=== PATIENT | male | born 1985 | race Caucasian/White ===

== ENCOUNTER 2018-08-30 16:33 | Emergency (ER) | payer MEDICAID ==
[2018-08-30 16:38] VITALS: BP 120/73
[2018-08-30] MEDS ORDERED: SULFAMETHOX/TMP 800/160 MG 1 TAB PO ONE (17:01)
--- NOTE | 2018-08-30 17:01 | EDPHY ---
H & P Stated Complaint: abcess R forearm area x 4 days Time Seen by Provider: 08/30/18 16:45 HPI/ROS: CHIEF COMPLAINT: Abscess HISTORY OF PRESENT ILLNESS: Patient is a 33-year-old IV drug abuser who comes to the emergency department complaining of an abscess to his right forearm. He states that he 1st noticed it about 4 days ago. He had been clean for 3 months and relapsed last week. He also has a healing wound to his right leg. It was I and D 1 month ago and he was placed on Bactrim but he is concerned that there is a re-collection just below the previous wound.. No fevers. He states that he has had 4 or 5 of these in the past. Severity: Moderate Modifying factors: None REVIEW OF SYSTEMS: Constitutional: denies: chills, fever, recent illness, recent injury EENTM: denies: blurred vision, double vision, nose congestion Respiratory: denies: cough, shortness of breath Cardiac: denies: chest pain, irregular heart rate, lightheadedness, palpitations Gastrointestinal/Abdominal: denies: abdominal pain, diarrhea, nausea, vomiting, blood streaked stools Genitourinary: denies: dysuria, frequency, hematuria, pain Musculoskeletal: denies: joint pain, muscle pain Skin: See HPI Neurological: denies: headache, numbness, paresthesia, tingling, dizziness, weakness Hematologic/Lymphatic: denies: blood clots, easy bleeding, easy bruising Immunologic/allergic: denies: HIV/AIDS, transplant 10 systems reviewed and negative except as noted EXAM: GENERAL: Well-appearing, well-nourished and in no acute distress. HEAD: Atraumatic, normocephalic. EYES: Pupils equal round and reactive to light, extraocular movements intact, sclera anicteric, conjunctiva are normal. ENT: TMs normal, nares patent, oropharynx clear without exudates. Moist mucous membranes. NECK: Normal range of motion, supple without lymphadenopathy or JVD. LUNGS: Breath sounds clear to auscultation bilaterally and equal. No wheezes rales or rhonchi. HEART: Regular rate and rhythm without murmurs, rubs or gallops. ABDOMEN: Soft, nontender, normoactive bowel sounds. No guarding, no rebound. No masses appreciated. BACK: No CVA tenderness, no spinal tenderness, step-offs or deformities EXTREMITIES: Normal range of motion, no pitting or edema. No clubbing or cyanosis. NEUROLOGICAL: Cranial nerves II through XII grossly intact. Normal speech, normal gait. 5/5 strength, normal movement in all extremities, normal sensation , normal reflexes PSYCH: Normal mood, normal affect. SKIN: Large abscess left forearm over dorsal aspects approximately 4 x 5 cm, fluctuant, small abscess to left leg visualized with ultrasound approximately 2 x 2 cm. Just below previous I&D site. Previous site is healing well and is slightly open. Source: Patient Exam Limitations: No limitations - Personal History Current Tetanus/Diphtheria Vaccine: Unsure Current Tetanus Diphtheria and Acellular Pertussis (TDAP): Unsure - Medical/Surgical History Hx Asthma: No Hx Chronic Respiratory Disease: No Hx Diabetes: No Hx Cardiac Disease: No Hx Renal Disease: No Hx Cirrhosis: No Hx Alcoholism: No Hx HIV/AIDS: No Hx Splenectomy or Spleen Trauma: No Other PMH: IVDU - Family History Significant Family History: No pertinent family hx - Social History Smoking Status: Current every day smoker Alcohol Use: Occasionally Drug Use: Heroin Constitutional: Initial Vital Signs Temperature (C) 36.8 C 08/30/18 16:35 Heart Rate 91 08/30/18 16:35 Respiratory Rate 16 08/30/18 16:35 Blood Pressure 120/73 08/30/18 16:35 O2 Sat (%) 97 08/30/18 16:35 O2 Delivery Mode Room Air Allergies/Adverse Reactions: No Known Allergies Allergy (Unverified 08/30/18 16:34) Home Medications: Medication Instructions Recorded Prozac 10 MG (*) 08/30/18 Sulfamethox/Tmp 800/160 mg 1 tab PO BID #20 tab 08/30/18 [Bactrim Ds] Wellbutrin 150mg XL 08/30/18 Medical Decision Making Procedures: Bedside ultrasound: Bedside ultrasound performed the patient's right leg. Fluid collection seen consistent with abscess. Procedure: Abscess drainage. The patient's abscess was located on the right arm. I obtained verbal consent from the patient to drain the abscess who was informed about the possibility of bleeding and pain. The abscess was incised with 11 blade scalpel and 10 cc of purulent drainage was expressed. I irrigated the wound and placed some packing. The patient tolerated the procedure well. The procedure was performed by myself. Procedure: Abscess drainage. The patient's abscess was located on the right leg. I obtained verbal consent from the patient to drain the abscess who was informed about the possibility of bleeding and pain. The abscess was incised with 11 blade scalp and 3-4 cc of purulent drainage was expressed. I irrigated the wound and placed some packing. The patient tolerated the procedure well. The procedure was performed by myself. ED Course/Re-evaluation: Patient has multiple abscesses. There drained. He tolerated this well with local anesthetic. I will start him back on Bactrim. We discussed indications for returning. We had previously discussed systemic pain control but elected to avoid opiates. Differential Diagnosis: Partial list of the Differential diagnosis considered include but were not limited to; abscess, cellulitis and although unlikely based on the history and physical exam, I also considered endocarditis, sepsis. I discussed these differential diagnoses and the plan with the patient as well as the usual and expected course. The patient understands that the diagnosis is provisional and that in medicine we are not always correct and that further workup is often warranted. Usual and customary warnings were given. All of the patient's questions were answered. The patient was instructed to return to the emergency department should the symptoms at all worsen or return, otherwise to followup with the physician as we discussed. - Data Points Medications Given: Discontinued Medications Trimethoprim/Sulfamethoxazole (Bactrim Ds) 1 ea PO EDNOW ONE PRN Reason: Protocol Stop: 08/30/18 17:02 Last Admin: 08/30/18 17:25 Dose: 1 ea Departure - Departure Disposition: Home, Routine, Self-Care Clinical Impression: Abscess of right arm, Abscess of right leg Condition: Fair Instructions: Abscess Follow-up (ED) Referrals: NONE *PRIMARY CARE P,. [Primary Care Provider] - As per Instructions Lucero Feliz MD [Medical Doctor] - 2-3 days, call for appt. Prescriptions: Sulfamethox/Tmp 800/160 mg [Bactrim Ds] 1 tab PO BID #20 tab
== END 2018-08-30 17:42 | disposition home or self-care (01) ==
PROC: 0H9DXZZ Drainage of Right Lower Arm Skin, External Approach (ICD-10-PCS; principal; 2018-08-30)
DX: L03.113 Cellulitis of right upper limb (principal); L03.115 Cellulitis of right lower limb; F19.10 Other psychoactive substance abuse, uncomplicated; F17.200 Nicotine dependence, unspecified, uncomplicated

== ENCOUNTER 2019-02-05 21:55 | Emergency (ER) | payer MEDICAID ==
[2019-02-05] MEDS ORDERED: SULFAMETHOX/TMP 800/160 MG 1 TAB PO ONE (23:02)
--- NOTE | 2019-02-05 23:03 | EDPHY ---
H & P Time Seen by Provider: 02/05/19 22:35 HPI/ROS: Chief complaint: Left arm and foot infection History of present illness: This is a 33-year-old male who presents to the emergency department for left arm and foot infection. He was attempting to inject heroin intravenously into these regions a few days ago. There is became red and slightly swollen. He attempted to drain them today with a needle and a swelled up. He is concerned he has abscesses. He only reports mild pain. No fevers. No red streaking from the site. He does have a primary care doctor and recently had a full laboratory workup which was unremarkable according to him. He does believe his tetanus is up-to-date. Smoking Status: Current every day smoker Physical Exam: General: Alert, nontoxic. Skin: Patient has an area of erythema to the left antecubital fossa in the dorsum of the left foot. Minimal warmth on palpation. Minimal tenderness. No induration or fluctuance appreciated on palpation. No red streaking. Musculoskeletal: Moving the left upper and lower extremity without difficulty. Vascular: Radial pulses, DP and PT pulses 2+. Neurologic: Sensation intact in the left upper and lower extremity. Constitutional: Initial Vital Signs Temperature (C) 36.8 C 02/05/19 21:58 Heart Rate 102 H 02/05/19 21:58 Respiratory Rate 18 02/05/19 21:58 Blood Pressure 133/88 H 02/05/19 21:58 O2 Sat (%) 100 02/05/19 21:58 O2 Delivery Mode Room Air Allergies/Adverse Reactions: No Known Allergies Allergy (Verified 02/05/19 21:59) Home Medications: Medication Instructions Recorded Wellbutrin 150mg XL 08/30/18 LaMICtal 02/05/19 SUBOXONE 8mg/2mg 02/05/19 Sulfamethox/Tmp 800/160 mg 1 tab PO BID #14 tab 02/05/19 [Bactrim Ds] MDM/Departure - MDM Medications Given: Discontinued Medications Trimethoprim/Sulfamethoxazole (Bactrim Ds) 2 ea PO EDNOW ONE PRN Reason: Protocol Stop: 02/05/19 23:03 Last Admin: 02/05/19 23:09 Dose: 2 ea ED Course/Re-evaluation: Patient seen under the supervision of my secondary supervising physician Dr. Parish Merritt. Patient presents to the emergency department concerned he has an infection from where he attempted to inject heroin. He does appear to have a cellulitis. I have placed the ultrasound on these regions and do not see an underlying collection of fluid. Further no red streaking or other evidence of complications. I believe this is a simple cellulitis. He will be started on Bactrim. I did discuss that this could progress and form abscesses or other complications and that if his symptoms worsen or new symptoms develop he should return to the emergency room. He should otherwise follow up with his primary care doctor for recheck. The patient voiced understanding and agreement with plan. Differential Diagnosis: Included but not limited to cellulitis, lymphangitis, abscess - Depart Disposition: Home, Routine, Self-Care Clinical Impression: Cellulitis Qualifiers: Site of cellulitis: other site Qualified Code(s): L03.818 - Cellulitis of other sites Condition: Good Instructions: Cellulitis (ED) Additional Instructions: Follow-up with a primary care doctor for continued evaluation and care Apply warm compresses to the area multiple times daily Take antibiotics as prescribed until finished even if feeling better Seek care for your heroin addiction If symptoms worsen or new symptoms develop return to the emergency room for recheck Prescriptions: Sulfamethox/Tmp 800/160 mg [Bactrim Ds] 1 tab PO BID #14 tab Referrals: NONE *PRIMARY CARE P,. [Primary Care Provider] - As per Instructions [facility],. [Clinic] - As per Instructions
[2019-02-05 23:15] VITALS: BP 132/76
== END 2019-02-05 23:10 | disposition home or self-care (01) ==
DX: L03.818 Cellulitis of other sites (principal)